=== PATIENT | male | born 1930 | race Caucasian/White ===

== ENCOUNTER 2016-05-08 12:16 | Inpatient (IN) | payer MEDICARE, BC ==
[~2016-05-08 12:16] MED LIST: ACETAMINOPHEN650 M2 PO; ALFUZOSIN HCL E10 MG PO; ASPIRIN325 M3 PO; ATORVASTATIN CA40 M1 PO; C-PAP MACHINE; COUMADIN1 M1 PO; COUMADIN2 M1 PO; COUMADIN5 M2 PO; COUMADIN6 M1 PO; ISOSORBIDE MONO30 M4 PO; LOVENOX40 MG/0.1 SC; MIDODRINE HCL10 M1 PO; MIRALAX17 G2 PO; MULTI VITAMIN1 EAC2 PO; PANTOPRAZOLE SO40 M3 PO; ROXICODONE5 M2 PO; SENOKOT-S TABL1 EACH PO; TYLENOL325 M2 PO; ULTRAM50 M1 PO; VITAMIN D31000 UNI3 PO; WARFARIN SODIUM5 M2 PO; ZEBETA5 M2 PO; [UNRECOGNIZED DRUG - CODE] PO
[2016-05-08 13:38] LABS: PROTHROMBIN TIME 11.5 SECONDS (9.0-13.6)
[2016-05-08 22:27] LABS: PROTHROMBIN TIME 12.1 SECONDS (9.0-13.6)
[2016-05-09 05:21] LABS: ANION GAP 9 mmol/L (0-20); BLOOD UREA NITROGEN 12 mg/dl (6-24); CARBON DIOXIDE-VENOUS 29 mmol/L (22-32); CHLORIDE 107 mmol/l (96-110); CREATININE 0.84 mg/dl (0.60-1.30); GLUCOSE 117 mg/dL (70-110); POTASSIUM 3.9 mmol/L (3.7-5.1); SODIUM 141 mmol/L (135-145); eGFR VALUE FOR BLACK >90 mL/Min
[2016-05-09 05:25] LABS: BASO % 0.1 % (0-2); EOS % 0.4 % (0-7); HCT-HEMATOCRIT 30.9 % (36.0-53.5); HGB-HEMOGLOBIN 10.1 gm/dl (13.5-17.0); IMMATURE GRANULOCYTES ABSOLUTE 0.01 tho/cmm (0-0.03); IMMATURE GRANULOCYTES PERCENT 0.1 % (0-0.3); LYMPH % 13.6 % (20-45); MCH (MEAN CORPUSCULAR HGB) 29.2 pg (28.0-32.0); MCHC MEAN CORPUSCULAR HGB CONC 32.7 % (32.0-36.0); MCV (MEAN CELL VOLUME) 89.3 fl (82.0-96.0); MONO % 7.4 % (0-12); MONOCYTE ABSOLUTE COUNT 0.5 tho/cmm (0.0-1.2); NEUTROPHIL ABSOLUTE COUNT 5.5 tho/cmm (1.6-8.0); NEUTROPHIL-AUTOMATED 5.5 tho/cmm (1.6-8.0); NEUTROPHILS % 78.4 % (40-80); PLATELET COUNT 145 tho/cmm (150-450); RED BLOOD COUNT 3.46 mil/cmm (4.40-5.70); RED CELL DISTRIBUTION WIDTH 14.6 % (12.4-16.4); WHITE BLOOD COUNT 7.1 tho/cmm (4.0-10.0)
[2016-05-09 06:26] LABS: INR 1.1 INR (0.9-1.1); PROTHROMBIN TIME 13.2 SECONDS (9.0-13.6)
[2016-05-10 06:08] LABS: INR 1.2 INR (0.9-1.1); PROTHROMBIN TIME 13.6 SECONDS (9.0-13.6)
[2016-05-11 04:46] LABS: INR 1.4 INR (0.9-1.1); PROTHROMBIN TIME 16.2 SECONDS (9.0-13.6)
[2016-05-11 04:55] LABS: ANION GAP 8 mmol/L (0-20); BLOOD UREA NITROGEN 9 mg/dl (6-24); CALCIUM 8.1 mg/dl (8.5-10.5); CARBON DIOXIDE-VENOUS 30 mmol/L (22-32); CHLORIDE 107 mmol/l (96-110); CREATININE 0.72 mg/dl (0.60-1.30); GLUCOSE 114 mg/dL (70-110); POTASSIUM 3.8 mmol/L (3.7-5.1); SODIUM 141 mmol/L (135-145); eGFR VALUE FOR BLACK >90 mL/Min
[2016-05-11] MEDS ORDERED: ULTRAM50 M1 PO (13:49)
[2016-05-11] MEDS ORDERED: LOVENOX40 MG/0.1 SC (13:50)
== END 2016-05-11 14:22 | DRG 470 ==
LOC: SHSB 12:16 → PACU 19:13 → 5EA 19:55
PROVIDERS: Family Medicine; Registered Nurse; ADMIT Orthopaedic Surgery Sports Medicine
PROC: 0SRD0J9 Replacement of Left Knee Joint with Synthetic Substitute, Cemented, Open Approach (ICD-10-PCS; principal; 2016-05-08)
DX: M17.12 Unilateral primary osteoarthritis, left knee (principal); D68.51 Activated protein C resistance; I35.0 Nonrheumatic aortic (valve) stenosis; I25.10 Atherosclerotic heart disease of native coronary artery without angina pectoris; K21.9 Gastro-esophageal reflux disease without esophagitis; Z79.01 Long term (current) use of anticoagulants; N40.0 Benign prostatic hyperplasia without lower urinary tract symptoms; I10 Essential (primary) hypertension; I95.81 Postprocedural hypotension; Z86.718 Personal history of other venous thrombosis and embolism; Z86.711 Personal history of pulmonary embolism; Z95.5 Presence of coronary angioplasty implant and graft
CPT/HCPCS: C1713; C1776; C9290; J0690; J1650; J1885; J2270; J7030